=== PATIENT | male | born 1945 | race Caucasian/White ===

== ENCOUNTER → 2018-02-03 | Outpatient (CLI) | payer MEDICARE | END | disposition home or self-care (01) | LOC: LABWHC1 10:44 | PROVIDERS: ATTEND Nurse Practitioner Adult Health | DX: E78.5 Hyperlipidemia, unspecified (principal); R53.83 Other fatigue; I25.10 Atherosclerotic heart disease of native coronary artery without angina pectoris; R06.02 Shortness of breath | CPT/HCPCS: 36415; 80061; 84443 ==

== ENCOUNTER → 2021-01-31 | Outpatient (CLI) | payer MEDICARE ==
[2021-01-31 11:30] LABS: HCT 34.9 % (39.6-50.0); HGB 11.2 g/dL (13.0-17.0); MCH 32.9 pg (27.0-32.0); MCHC 32.1 g/dL (32.0-37.0); MCV 102.6 fL (80.0-97.0); Platelet Count 245 X 10*3/uL (140-440); RDW 13.2 % (11.5-14.5); WBC 6.81 X 10*3/uL (4.50-10.00)
[2021-01-31 12:30] LABS: African American GFR (CKD) 74.1 (60.0-200.0); Albumin 4.5 g/dL (3.80-4.90); Albumin/Globulin Ratio 2.05 (1.60-3.17); BUN/Creat Ratio 24.55 Ratio (12.00-20.00); Calcium 9.3 mg/dL (8.7-10.3); Chol/HDL Ratio 3.47; Globulin 2.2 g/dL (1.6-3.3); LDL Cholesterol,Calculated 69.2 mg/dL (0.0-131.0); Potassium 4.5 mmol/L (3.5-5.5); Total Bilirubin 0.4 mg/dL (0.3-1.2); Total Protein 6.7 g/dL (6.2-8.2); VLDL Calculation 19.8 mg/dL (5.00-40.00)
[2021-01-31 12:37] LABS: Prostate Specific Antigen 1.3 ng/mL (0.0-6.5)
== END | disposition home or self-care (01) ==
LOC: LABWHC1 07:22
PROVIDERS: ATTEND Family Medicine
DX: Z00.01 Encounter for general adult medical examination with abnormal findings (principal); N40.1 Benign prostatic hyperplasia with lower urinary tract symptoms; E66.3 Overweight; R53.83 Other fatigue
CPT/HCPCS: 36415; 80053; 80061; 84153; 85027

== ENCOUNTER → 2023-02-13 | Outpatient (CLI) | payer MEDICARE ==
[2023-02-13 23:55] LABS: ALT 20 U/L (10-49); AST 25 U/L (14-35); African American GFR (CKD) 60.9 (60.0-200.0); Albumin 4.6 g/dL (3.8-4.9); Albumin/Globulin Ratio 2.07 (1.60-3.17); Alkaline Phosphatase 81 U/L (41-126); BUN/Creat Ratio 26.33 Ratio (12.00-20.00); Blood Urea Nitrogen 33.7 mg/dL (9.0-27.0); Carbon Dioxide 24.3 mmol/L (20.0-27.5); Chloride 106 mmol/L (96-109); Globulin 2.2 g/dL (1.6-3.3); Glucose 99 mg/dL (70-110); LDL Cholesterol,Calculated 61.4 mg/dL (0.0-131.0); Non-African American GFR(CKD) 52.5 (60.0-200.0); Potassium 5.2 mmol/L (3.5-5.5); Sodium 139 mmol/L (135-145); Total Protein 6.8 g/dL (6.2-8.2); VLDL Calculation 15.52 mg/dL (5.00-40.00)
[2023-02-14 11:30] LABS: HCT 35.5 % (39.6-50.0); HGB 11.6 g/dL (13.0-17.0); MCH 33.8 pg (27.0-32.0); MCHC 32.7 g/dL (32.0-37.0); MCV 103.5 fL (80.0-97.0); Mean Platelet Volume 10.4 fL (9.5-12.2); NRBC Per 100 WBC 0 /100 WBCS (0.0-0.0); Platelet Count 251 X 10*3/uL (140-440); RBC 3.43 X 10*6/uL (4.40-5.60); RDW 12.6 % (11.5-14.5)
== END | disposition home or self-care (01) ==
LOC: LABWHC1 11:25
PROVIDERS: ATTEND Family Medicine
DX: Z00.01 Encounter for general adult medical examination with abnormal findings (principal); N40.1 Benign prostatic hyperplasia with lower urinary tract symptoms; R53.83 Other fatigue
CPT/HCPCS: 36415; 80053; 80061; 83036; 84153; 85027

== ENCOUNTER → 2023-03-12 | Outpatient (CLI) | payer MEDICARE ==
--- NOTE | 2023-03-12 11:37 | FL ---
ESOPHOGRAM. HISTORY: Dysphagia Esophagram was performed per the air contrast technique. The patient swallowed barium and effervesce nt crystals without difficulty or delay. Esophageal peristalsis and motility appear to be within normal limits. There is no evidence for filling defect, mass or diverticulum. No hiatal hernia seen. Subsequently single contrast cervical esophagram was performed which fails demonstrate evidence for a spiration penetration or mass. 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 There is also a moderate spur formation at C5-6 and C6-7 impressing upon the posterior aspect of the esophageal wa ll. 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 There is also a moderate spur fo rmation at C5-6 and C6-7 impressing upon the posterior aspect of the esophageal wall.
== END | disposition home or self-care (01) ==
LOC: RADUSWWP 09:57
PROVIDERS: ATTEND Otolaryngology
DX: R13.19 Other dysphagia (principal)
CPT/HCPCS: 74220